=== PATIENT | female | born 1945 | race Caucasian/White ===

== ENCOUNTER 2016-08-08 17:32 | Observation (INO) | payer MEDICARE ==
[~2016-08-08] VITALS: Ht 162.6 cm; Wt 64.5 kg
[~2016-08-08 17:32] MED LIST: [UNRECOGNIZED DRUG - OTHER] PO
[2016-08-08 17:40] VITALS: PULSE 70; RESP 12; O2SAT 99
--- NOTE | 2016-08-08 17:59 | DRSVH ---
PROCEDURE: X-RAY CHEST ONE VIEW, PORTABLE ([id number]) INDICATIONS: CP TECHNIQUE: One view of the chest was acquired. COMPARISON: [facility], CR, XR CHEST 2VW, 02/13/2016, 20:28. FINDINGS: Surgical changes and devices: Left chest wall surgical clips. Lungs and pleura: No pleural effusions or pneumothorax. Lungs are clear. Mediastinum: Mediastinal contours appear normal. Heart size is normal. Bones and chest wall: No suspicious bony lesions. Overlying soft tissues appear unremarkable. IMPRESSION: No acute process. Dictated by: Terrell Parr M.D. on 08/08/2016 at 17:58 Approved by: Terrell Parr M.D. on 08/08/2016 at 17:58
[2016-08-08 18:05] LABS: BASOPHILS % (AUTO) 0.8 % (0-3); EOSINOPHILS % (AUTO) 1.2 % (0-5); MONOCYTES % (AUTO) 9.1 % (4-12); Mean Corpuscular Hemoglobin 33.6 pg (27.0-35.0); Mean Corpuscular Volume 96.3 fL (81-100); NEUTROPHILS % (AUTO) 66.8 % (40-74); Platelet Count 183 bil/L (150-400)
--- NOTE | 2016-08-08 18:17 | ED.REPORT ---
HPI-Chest Pain 40 and Over Date of Service Aug 08, 2016 ED Provider: Dr. Jacob Forbes D.O. A 70 year old female with a medical history including Spigelian hernia, nephrolithiasis, and breast cancer s/p lumpectomy presents to the ED with intermittent left lower chest pain onset several years ago, worsening today around 1100 while walking. The pain is described as "tightness." The patient also reports shortness of breath and exertional dyspnea. She denies vomiting or other symptoms. She has had previous work-ups for similar symptoms in the past, including in the ED on 02/12/17. Nursing Notes Stated Complaint: SHORT OF BREATH, TIGHTNESS IN CHEST Chief Complaint: Chest Pain Nursing Notes Reviewed: Yes Allergies: Coded Allergies: ciprofloxacin HCl (Verified Allergy, Severe, tendons hurting in knees and ankles, 08/08/16) oxycodone (Verified Allergy, Severe, Nausea,Vomiting, 08/08/16) tamsulosin HCl (Verified Allergy, Severe, racing heart, 08/08/16) timolol (Verified Allergy, Severe, Shortness of Breath, 08/08/16) brimonidine (Verified Adverse Reaction, Severe, Shortness of Breath, ) prednisone (Verified Adverse Reaction, Intermediate, Nausea,Vomiting, 02/12) Uncoded Allergies: ORAL NARCOTICS (Allergy, Severe, VOMITING, 06/19/12) Scheduled Cholecalciferol (Vitamin D3) (Vitamin D3) 2,000 Unit Tablet 2,000 UNIT PO DAILY Levothyroxine (Levothyroxine) 25 Mcg Tablet 25 MCG PO QAM Ubidecarenone (Coenzyme Q-10) 200 Mg Capsule 200 MG PO DAILY General Time Seen by MD: 18:17 Chief Complaint Chest pain Hx Obtained From: Patient Arrived By: Walk-in Sudden in Onset?: No Onset Occurred: More than a week ago... (Several years ago, worsening 1100 today) Symptom Duration: Intermittent Location: : Chest left (Lower) Quality: Painful ("Tightness") Severity: Current: Moderate Severity: Maximum: Moderate Associated with: Reports: Shortness of Breath, Denies: Vomiting Pertinent Negative: Relieved by nothing Recent Healthcare: Prior workup Similar Sx Previous: Yes Past Medical History Past Medical History Kidney stones Spigelian hernia Breast cancer Past Surgical History Left eye removed Breast cancer s/p lumpectomy Reports: Appendectomy Smoking History Former Smoker Social History Alcohol Use: Denies alcohol use Drug Use: Denies drug use Other Social History: Good social support, , Local resident Ambulatory Status Independent Review of Systems Constitutional: Denies: Fever Respiratory: Reports: Dyspnea on exertion, Shortness of breath, Denies: Non-productive cough Cardiovascular: Reports: Chest pain (Left lower) GI: Denies: Diarrhea, Vomiting Complete sys rev & neg: except as marked. Physical Exam Initial Vital Signs Vital Signs (First) Date Time Temp Pulse Resp B/P Pulse Ox O2 Delivery O2 Flow Rate FiO2 08/08/16 17:40 36.7 70 12 99 Room Air 08/08/16 18:56 143/63 Initial VS: Reviewed Neck: Supple, Full range of motion Skin: Warm, Dry, No cyanosis Neurologic: Alert, Oriented, Nonfocal Psychiatric: Mood/affect normal, Behavior normal, Normal thought content General/Constitutional: Awake, Alert, No acute distress Respiratory / Chest: Breath sounds NL, Breath sounds = bilat, No respiratory distress Cardiovascular: Heart rate NL, Regular rhythm, Heart sounds NL Abdomen: Soft, Non-tender Head / Eyes: Atraumatic, Normocephalic Prosthetic left eye Interpretation & Diagnostics Lab Results Interpretation Result Diagram: 08/08/16 1750 08/08/16 1750 Test 08/08/16 17:50 White Blood Count 4.9th/mm3 (3.8-10.1) Red Blood Count 4.61mil/mm3 (3.90-5.20) Hemoglobin 15.5g/dL (12.0-15.6) Hematocrit 44.4% (35.0-46.0) Mean Corpuscular Volume 96.3fL (81-100) Mean Corpuscular Hemoglobin 33.6pg (27.0-35.0) Mean Corpuscular Hemoglobin Concent 34.9% (32.0-37.0) Red Cell Distribution Width 11.7% (12.3-15.4) Platelet Count 183bil/L (150-400) Neutrophils (%) (Auto) 66.8% (40-74) Lymphocytes (%) (Auto) 21.7% (14-46) Monocytes (%) (Auto) 9.1% (4-12) Eosinophils (%) (Auto) 1.2% (0-5) Basophils (%) (Auto) 0.8% (0-3) D-Dimer < 0.5mg/L (<0.50) Sodium Level 138mEq/L (134-144) Potassium Level 3.7mEq/L (3.5-5.2) Chloride Level 99mEq/L (97-108) Carbon Dioxide Level 24mmol/L (18-29) Blood Urea Nitrogen 11mg/dL (8-27) Creatinine 0.56mg/dL (0.57-1.00) Estimat Glomerular Filtration Rate 152mL/min (>59) Glucose Level 99mg/dL (60-99) Calcium Level 9.2mg/dL (8.5-10.1) Magnesium Level 2.3mg/dL (1.6-2.6) Total Bilirubin 0.6mg/dL (0.0-1.2) Aspartate Amino Transf (AST/SGOT) 23U/L (0-50) Alanine Aminotransferase (ALT/SGPT) 17U/L (0-32) Alkaline Phosphatase 103U/L (25-165) Total Creatine Kinase 92U/L (21-215) Creatine Kinase MB 3.6ng/mL (0.0-5.3) Creatine Kinase MB % % (0.0-5.0) Troponin T < 0.010ug/L (0.0-0.011) Total Protein 7.0g/dL (6.4-8.4) Albumin 4.4g/dL (3.4-5.0) ECG Interpretation ECG Interpretation: Sinus rhythm rate 64 Left axis deviation Time: 18:00 Interpreted by: ED physician X-Ray Chest Interpretation Chest Xray Interpretation: IMPRESSION: No acute process. Dictated by: Terrell Parr M.D. on 08/08/2016 at 17:58 View: Portable, 1 view Interpretation / Wet Read by: Interpret - Radiologist CT Chest Interpretation IMPRESSION: 1. No acute process. No pulmonary embolus. 2. No change in right thyroid mass, which could be further assessed with ultrasound, if clinically indicated. Dictated by: Terrell Parr M.D. on 08/08/2016 at 20:06 Study type: CT pulm angiogram Interpretation / Wet Read by: Interpret - Radiologist Re-Eval/Medical Decision Source of Hx: Old records Time of Eval: 21:30 Patient Status: Condition improved Re-Evaluation/Progress Note: Discussed with patient x-ray, CT, and lab results, diagnosis, and plan for admit. Patient agrees with plan for care and all questions were addressed. Consultation : Referral / Consult Name: Dillan Guzman MD Consulted With: Hospitalist Call Returned at: 21:57 Adjutant General: Agrees with eval, Agrees with plan, Accepts admit Counseled Regarding: Diagnosis, Lab results, Need for admission Discharge & Departure Primary Impression: Chest pain Chest pain type: precordial chest pain Qualified Code: R07.2 - Precordial pain Disposition: ADMITTED TO HOSPITAL Discharge Condition All VS Reviewed: Yes Condition: Improved Referrals: Hunter Togn DO (PCP) Alycia Attestation Portions of this note were transcribed by Deidre Seals. I, Dr. Forbes, personally performed the history, physical exam, and medical decision-making; I reviewed and confirmed the accuracy of the information in the transcribed note. Signed by: Alycia Welsh, 08/08/2016, 22:55 copies to: Hunter Tong Todd P DO Aug 08, 2016 18:17 DEIDRE SEALS Aug 08, 2016 18:32
[2016-08-08] MEDS ORDERED: LEVO25TA5 PO (18:20)
[2016-08-08 18:37] LABS: Magnesium 2.3 mg/dL (1.6-2.6)
[2016-08-08 18:42] LABS: TROPONIN T < 0.010 ug/L (0.0-0.011)
[2016-08-08 18:56] VITALS: BP 143/63; PULSE 68; RESP 18; O2SAT 99
[2016-08-08 20:00] VITALS: BP 152/50; PULSE 72; RESP 18; O2SAT 97
--- NOTE | 2016-08-08 20:09 | DRSVH ---
PROCEDURE: CT ANGIO CHEST PULMONARY EMBOLISM ([id number]) INDICATIONS: dyspnea, chest pain, sharp pain TECHNIQUE: After the administration of intravenous contrast, 2 mm thick sections acquired from the pulmonary api asael to the posterior costophrenic angles. 3-dimensional maximum intensity projection (MIP) coronal a nd sagittal reformats were then acquired through the thorax. For radiation dose reduction, the follo wing was used: automated exposure control, adjustment of mA and/or kV according to patient size. COMPARISON: [facility] , CT, CHEST/ABD W/CON (PNL), 10/19/2005, 18:24. [facility], CT, CHEST ANGIO-PE, 10/04/2013, 21:19. FINDINGS: Image quality: Excellent. Pulmonary arteries: Pulmonary arteries are normal in size, and demonstrate no intraluminal filling d efects to suggest central pulmonary embolism. Lungs and pleura: Lungs are clear. No pleural effusions or pneumothorax. Central and peripheral ai rways are patent. Mediastinum: Heart size is normal, without pericardial effusion. No mediastinal or hilar adenopathy . Thoracic aorta is normal in caliber and enhancement. Esophagus is normal in caliber, without hiat al hernia. Bones and chest wall: No suspicious bony lesions. Ribs and thoracic spine appear intact throughout. Thyroid gland demonstrates a 20 mm diameter low-density focus within the right lobe, as before. No axillary or supraclavicular adenopathy. Abdomen: Visualized upper abdominal solid organs appear normal in the early arterial phase of enhanc ement. IMPRESSION: 1. No acute process. No pulmonary embolus. 2. No change in right thyroid mass, which could be further assessed with ultrasound, if clinically in dicated. Dictated by: Terrell Parr M.D. on 08/08/2016 at 20:06 Approved by: Terrell Parr M.D. on 08/08/2016 at 20:08
[2016-08-08 21:00] VITALS: BP 135/60; PULSE 68; RESP 18; O2SAT 95
[2016-08-08] MEDS ORDERED: Nitroglycerin 2% 1 Gm Ointment TOPICAL ONE (21:10)
[2016-08-08 22:00] VITALS: BP 151/72; PULSE 69; RESP 18; O2SAT 97
[2016-08-08] MEDS ORDERED: Senna-Docusate 8.6-50 mg Tablet PO PRN (22:00)
[2016-08-08] MEDS ORDERED: Ondansetron 2 mg/mL 2 mL Inj IVPUSH PRN (22:00)
[2016-08-08] MEDS ORDERED: Alum-Mag Hydrox-Simeth 30 mL Suspension PO PRN (22:00)
[2016-08-08] MEDS ORDERED: Polyethylene Glycol (PEG) 17 Gm Powder PO PRN (22:00)
[2016-08-08] MEDS ORDERED: Atropine 1 mg/10 mL (Code) Syringe IVPUSH PRN (22:00)
[2016-08-08] MEDS ORDERED: CHOL200025 PO (22:23)
[2016-08-08] MEDS ORDERED: UBID200C31 PO (22:23)
[2016-08-08 22:37] LABS: Creatine Kinase 92 U/L (21-215)
[2016-08-08 22:53] VITALS: BP 162/80; PULSE 73; RESP 20; O2SAT 98
--- NOTE | 2016-08-08 23:23 | PCM.HPMED ---
Subjective Date of Service Aug 08, 2016 Primary Provider: Admitting Physician: Dillan Guzman MD Primary Care Physician: Hunter Tong DO Attending Physician: Dillan Guzman MD Admit Status: From the Emergency Department, 23-Hour Observation, Remote Telemetry Chief Complaint: Chest pain History of Present Illness: Soraya Nava is a 70 year old female with Spigelian hernia, nephrolithiasis, and breast cancer s/p lumpectomy presents to [facility] emergency department with intermittent left lower chest pain. Patient reported onset several years ago, worsening today around 1100 while walking with her . The pain is described as "tightness." that seems to radiate to the left lower chest area. Associated with some shortness of breath and exertional dyspnea. She denies vomiting, diaphoresis, or vomiting. She has had previous work-ups for similar symptoms in the past, including in the ED on 02/12/17. She had a negative stress test about 3 years ago. Her has extensive heart disease and had a negative stress test but he was later found to have a massive DC, family and patient are skeptical about stress test. She denies any stress recently but had Anxiety problems around June. She is compliant with medication and only takes thyroid medications. Case discussed with Dr Forbes, Aspirin and Nitro given with resolution of pain. Troponin negative. Review of Systems: Pertinent positives as noted in HPI. All other systems were reviewed and are negative Allergies Coded Allergies: ciprofloxacin HCl (Verified Allergy, Severe, tendons hurting in knees and ankles, 08/08/16) oxycodone (Verified Allergy, Severe, Nausea,Vomiting, 08/08/16) tamsulosin HCl (Verified Allergy, Severe, racing heart, 08/08/16) timolol (Verified Allergy, Severe, Shortness of Breath, 08/08/16) brimonidine (Verified Adverse Reaction, Severe, Shortness of Breath, ) prednisone (Verified Adverse Reaction, Intermediate, Nausea,Vomiting, 02/12) Uncoded Allergies: ORAL NARCOTICS (Allergy, Severe, VOMITING, 06/19/12) Home Medications From Soraya Esparza. [id number] 1945 08/07/2016 09:40 AM 06/11 CoQ-10 100 mg capsule take 1 capsule every day Tirosint 25 mcg capsule take 1 capsule by oral route every day PMH Tricuspid regurgitation Osteopenia Osteoarthritis, knee Hypothyroidism Breast cancer s/p lumpectomy and radiation COPD (chronic obstructive pulmonary disease) Hyperlipidemia Nephrolithiasis Anxiety . Surgical History Spigelian hernia repair Cornea transplant Chelation to remove calcium deposits left cornea Lumpectomy and radiation for Breast cancer Multiple lithotripsy procedure to remove kidney stones Family History Father had colon cancer, Stroke Brother had Lung cancer and melanoma Brother had Factor V Leiden Social History Hx Alcohol Use: No Hx Substance Use: No Hx Tobacco Use: Yes Smoking Status: Former Smoker Living Arrangement: with Family Exam Vital Signs Vital Sign - Last Date Time Temp Pulse Resp B/P Pulse Ox O2 Delivery O2 Flow Rate FiO2 08/08/16 18:56 68 18 143/63 99 Room Air 08/08/16 17:40 36.7 Exam General: Alert, Oriented X3, Cooperative, No acute Distress Eyes: PERRLA, Scleral Anicteric Mouth: Mouth Normal, Mucous Membranes Moist/[place] Neck: Supple, no Thyromegaly, trachea central. Chest & Lungs: Clear to auscultation & percussion, No adventitious breath sounds, no crackles, no wheeze Cardiovascular: Normal S1, Normal S2, No Murmurs/Rubs/Gallops, Regular Rate/ Rhythm, (No JVD, no peripheral edema) Pulses: Radial (present and equal), Dorsalis Pedi (present and equal) Abdomen: Soft, Non-tender, Non-distended, Normoactive bowel tones. Musculoskeletal: Unremarkable. Normal range of motion, no swollen or erythematous joints Extremities: No edema, no cyanosis, no clubbing. Skin: No rashes. Warm and dry, no erythematous areas Neurological: Grossly neurologically intact, Normal Speech, Sensation Intact Lymphatic: Lymph nodes Cervical and Axillary not palpable. Lab and Diagnostics Labs Laboratory Tests Test 08/08/16 17:50 White Blood Count 4.9th/mm3 (3.8-10.1) Red Blood Count 4.61mil/mm3 (3.90-5.20) Hemoglobin 15.5g/dL (12.0-15.6) Hematocrit 44.4% (35.0-46.0) Mean Corpuscular Volume 96.3fL (81-100) Mean Corpuscular Hemoglobin 33.6pg (27.0-35.0) Mean Corpuscular Hemoglobin Concent 34.9% (32.0-37.0) Red Cell Distribution Width 11.7% (12.3-15.4) Platelet Count 183bil/L (150-400) Neutrophils (%) (Auto) 66.8% (40-74) Lymphocytes (%) (Auto) 21.7% (14-46) Monocytes (%) (Auto) 9.1% (4-12) Eosinophils (%) (Auto) 1.2% (0-5) Basophils (%) (Auto) 0.8% (0-3) D-Dimer < 0.5mg/L (<0.50) Sodium Level 138mEq/L (134-144) Potassium Level 3.7mEq/L (3.5-5.2) Chloride Level 99mEq/L (97-108) Carbon Dioxide Level 24mmol/L (18-29) Blood Urea Nitrogen 11mg/dL (8-27) Creatinine 0.56mg/dL (0.57-1.00) Estimat Glomerular Filtration Rate 152mL/min (>59) Glucose Level 99mg/dL (60-99) Calcium Level 9.2mg/dL (8.5-10.1) Magnesium Level 2.3mg/dL (1.6-2.6) Total Bilirubin 0.6mg/dL (0.0-1.2) Aspartate Amino Transf (AST/SGOT) 23U/L (0-50) Alanine Aminotransferase (ALT/SGPT) 17U/L (0-32) Alkaline Phosphatase 103U/L (25-165) Troponin T < 0.010ug/L (0.0-0.011) Total Protein 7.0g/dL (6.4-8.4) Albumin 4.4g/dL (3.4-5.0) Result Diagram: 08/08/16 1750 08/08/16 1750 X-Rays, CTs and MRIs X-RAY CHEST ONE VIEW, PORTABLE 08/08/16 IMPRESSION: No acute process. Dictated by: Terrell Parr M.D. on 08/08/2016 at 17:58 Approved by: Terrell Parr M.D. on 08/08/2016 at 17:58 CT ANGIO CHEST PULMONARY EMBOLISM 08/08/16 IMPRESSION: 1. No acute process. No pulmonary embolus. 2. No change in right thyroid mass, which could be further assessed with ultrasound, if clinically indicated. Dictated by: Terrell Parr M.D. on 08/08/2016 at 20:06 Approved by: Terrell Parr M.D. on 08/08/2016 at 20:08 Assessment & Plan Soraya Nava is a 70 year old female with Spigelian hernia, nephrolithiasis, and breast cancer s/p lumpectomy presents to [facility] emergency department with intermittent left lower chest pain 1. Acute Chest pain. Present on admission Pulmonary embolism ruled out and no aortic dissection on CT scan. Patient had radiation from her breast cancer and could be a contributing factor. Mention of patient having hiatal hernia from review of clinic notes, consider GI causes such as reflux. - monitor on telemetry - trending cardiac biomarkers - complete echo - patient and family refused stress test and wants to discuss a cardiac cath with Cardiology tomorrow - Cardiology will be consulted to discuss options with family 2. Hypothyroidism Recent TSH 1.36 (06/11/16). thyroid mass seen on CT scan - continue Synthroid 25 mcg daily - follow up with Endocrinology as outpatient 3. Breast cancer. in remission - routine surveillance as outpatient - Acetaminophen as needed for mild pain/fever/headache - Bowel regimen as needed - Antiemetic as needed Patient is admitted under observation status with expected length of stay less than 2 midnights due to severity of presenting symptoms, risk of adverse event, and complexity of treatment plan. . Resuscitation Status: CPR: Attempt Resuscitation Dillan Guzman MD Aug 08, 2016 22:06
[2016-08-08] MEDS: 0.9% Sodium Chloride 1,000 ML IV SCH (23:27)
[2016-08-08] MEDS: Sodium Chloride LOK Flush 10 mL Syringe IVFLUSH SCH (23:27)
[2016-08-08] MEDS: Heparin 5,000 Unit/mL Inj SUBQ SCH (23:42)
[2016-08-09 02:54] LABS: Creatine Kinase 62 U/L (21-215)
[2016-08-09 04:49] VITALS: BP 153/74; PULSE 60; RESP 20; O2SAT 96
[2016-08-09 04:53] LABS: COLOR,URINE STRAW (YELLOW)
[2016-08-09 04:54] LABS: APPEARANCE,URINE CLEAR (CLEAR,HAZY); OCCULT BLOOD,URINE NEGATIVE (NEGATIVE); PH,URINE 6.5 (5.0-8.0); UROBILINOGEN,URINE NORMAL (NORMAL)
--- NOTE | 2016-08-09 05:26 | NUR ---
Admit note Pt arrive to [facility] at 2245. Pt is alert and oriented X3, up ind in room, steady gait observed. Placed pt on tele, IV fluids infusing. SCDs in place. Pt to be NPO after midnight per MD orders. Call light within reach, frequent rounding, allergy sticker to arm band.
[2016-08-09 06:39] LABS: BASOPHILS % (AUTO) 1.1 % (0-3); EOSINOPHILS % (AUTO) 2.5 % (0-5); MONOCYTES % (AUTO) 12.9 % (4-12); Mean Corpuscular Hemoglobin 33.1 pg (27.0-35.0); NEUTROPHILS % (AUTO) 45.1 % (40-74); Platelet Count 150 bil/L (150-400)
[2016-08-09 06:57] VITALS: PULSE 66
[2016-08-09 08:00] VITALS: PULSE 66
[2016-08-09] MEDS: Sodium Chloride LOK Flush 10 mL Syringe IVFLUSH SCH ×2 (08:30→16:30)
[2016-08-09 08:49] VITALS: BP 136/78; PULSE 59; RESP 21; O2SAT 95
[2016-08-09] MEDS: Heparin 5,000 Unit/mL Inj SUBQ SCH ×2 (09:14→16:30)
[2016-08-09] MEDS: 0.9% Sodium Chloride 1,000 ML IV SCH (10:37)
[2016-08-09 10:59] LABS: Creatine Kinase 61 U/L (21-215)
--- NOTE | 2016-08-09 13:08 | NUR ---
Off Unit: Patient transported to [facility] @ approx 1310 via wheelchair accompanied by transporter. automatic equipment technician notified. Denies chest pain at time of transport.
[2016-08-09 13:18] VITALS: BP 145/66; PULSE 65; RESP 20; O2SAT 94
--- NOTE | 2016-08-09 14:09 | PCM.PNMED ---
Subjective Date of Service Aug 09, 2016 Subjective HPI as per admitting physician: Soraya Nava is a 70 year old female with Spigelian hernia, nephrolithiasis, and breast cancer s/p lumpectomy presents to [facility] emergency department with intermittent left lower chest pain. Patient reported onset several years ago, worsening today around 1100 while walking with her . The pain is described as "tightness." that seems to radiate to the left lower chest area. Associated with some shortness of breath and exertional dyspnea. She denies vomiting, diaphoresis, or vomiting. She has had previous work-ups for similar symptoms in the past, including in the ED on 02/12/17. She had a negative stress test about 3 years ago. Her has extensive heart disease and had a negative stress test but he was later found to have a massive CA, family and patient are skeptical about stress test. She denies any stress recently but had Anxiety problems around June. She is compliant with medication and only takes thyroid medications. Case discussed with Dr Forbes, Aspirin and Nitro given with resolution of pain. Troponin negative. S: Pt denies present cp/f//sob - discussed with pt RF related to cardiac dz which in her case include tob hx (remote) and age. While I mentioned a cath would likely nto take place without discussion/recommendation by cardiology - I offerred her the option to pursue the recommended route of nucl stress test. pt states she can walk >2miles at baseline, doest do much stairs but denies cp that resolves with rest - a persistent sob has occurred though which she has repeatedly had nl stress tests. pt reported having a nl strss approx 2yrs ago. pts at bedside restating that his CAD hx came with nl stress tests so he is worried about the etiology of persistent sob. pt does have a hx of COPD Exam Vital Signs Vital Sign - Last Date Time Temp Pulse Resp B/P Pulse Ox O2 Delivery O2 Flow Rate FiO2 08/09/16 13:18 36.5 65 20 145/66 94 Room Air Intake and Output 08/08/16 08/08/16 08/09/16 Cumulative From/Thru 15:00 23:00 07:00 08/08/16 17:40 - 08/09/16 04:49 Intake Total 100 ml 407 ml 507 ml Balance 100 ml 407 ml 507 ml Intake Oral 100 ml 100 ml IV Total 407 ml 407 ml Exam General: Alert, Oriented X3, Cooperative, No acute Distress Eyes: PERRLA, Scleral Anicteric Mouth: Mouth Normal, Mucous Membranes Moist/[place] Neck: Supple, no Thyromegaly, trachea central. no JVD Chest & Lungs: Clear to auscultation & percussion, No adventitious breath sounds, no crackles, no wheeze Cardiovascular: Normal S1, Normal S2, No Murmurs/Rubs/Gallops, Regular Rate/ Rhythm Pulses: Radial (present and equal), Dorsalis Pedi (present and equal) Abdomen: Soft, Non-tender, Non-distended, Normoactive bowel tones. Musculoskeletal: Unremarkable. Normal range of motion, no swollen or erythematous joints Extremities: No edema, no cyanosis, no clubbing. Skin: No rashes. Warm and dry, no erythematous areas Neurological: Grossly neurologically intact, Normal Speech, Sensation Intact Lymphatic: Lymph nodes Cervical and Axillary not palpable. IVs and Medications Medications Reviewed: Medications were reviewed in detail Lab and Diagnostics Result Diagram: 08/09/16 0557 08/09/16 0557 X-Rays, CTs and MRIs X-RAY CHEST ONE VIEW, PORTABLE 08/08/16 IMPRESSION: No acute process. Dictated by: Terrell Parr M.D. on 08/08/2016 at 17:58 Approved by: Terrell Parr M.D. on 08/08/2016 at 17:58 CT ANGIO CHEST PULMONARY EMBOLISM 08/08/16 IMPRESSION: 1. No acute process. No pulmonary embolus. 2. No change in right thyroid mass, which could be further assessed with ultrasound, if clinically indicated. Dictated by: Terrell Parr M.D. on 08/08/2016 at 20:06 Approved by: Terrell Parr M.D. on 08/08/2016 at 20:08 Assessment & Plan Soraya Nava is a 70 year old female with Spigelian hernia, nephrolithiasis, and breast cancer s/p lumpectomy presents to [facility] emergency department with intermittent left lower chest pain 1. Acute Chest pain. Present on admission Pulmonary embolism ruled out and no aortic dissection on CT scan. Patient had radiation from her breast cancer and could be a contributing factor. Mention of patient having hiatal hernia from review of clinic notes, consider GI causes such as reflux. - monitor on telemetry - trending cardiac biomarkers - neg - Chol unremarkable - complete echo - patient and family initially refused sterss - now will hav done today after discussion - Cardiology was contacted today regarding pt 2. Hypothyroidism Recent TSH 1.36 (06/11/16). thyroid mass seen on CT scan - continue Synthroid 25 mcg daily - follow up with Endocrinology as outpatient 3. Breast cancer. in remission - routine surveillance as outpatient - Acetaminophen as needed for mild pain/fever/headache - Bowel regimen as needed - Antiemetic as needed Patient is admitted under observation status with expected length of stay less than 2 midnights due to severity of presenting symptoms, risk of adverse event, and complexity of treatment plan. . Pain Evaluation: Adequate Pain Control GI Prophylaxis: H2 ramona VTE Prophylaxis: Sub-Q Heparin (Unfractionated) VTE Mechanical Devices: Intermittant Pneumatic CD Resuscitation Status: CPR: Attempt Resuscitation Time spent 40 minutes spent wtih eval and mgmt Attending Statement likely dc tomorrow if neg stress and discussion with cardiology Jigar Bryant DO Aug 09, 2016 14:09
[2016-08-09 16:37] VITALS: BP 134/73; PULSE 71; RESP 21; O2SAT 97
[2016-08-09] MEDS ORDERED: ASPI81TA3 PO (17:35)
--- NOTE | 2016-08-09 17:41 | PCM.DIMED ---
Discharge Instructions Date of Service Aug 09, 2016 Dates of Hospitalization Aug 08, 2016 at 21:52 Discharge Diagnosis Discharge Diagnosis noncardiac chest pain - neg stress - r/o sx COPD Tricuspid regurgitation Osteopenia Osteoarthritis, knee Hypothyroidism Breast cancer s/p lumpectomy and radiation COPD (chronic obstructive pulmonary disease) Hyperlipidemia Nephrolithiasis Anxiety Medication Instructions I have started primary prevention tx with aspirin 81mg given HLP, age, and cva fam hx Diet Heart Healthy Activity No restrictions Patient Instructions please take 1 aspirin 81mg daily for cardiac protection Follow-up plan f/u with DR Martel of Cardiology by calling for an appointment - I have sent a referral, please contact his office to ensure you have an established appointment Please also f/u with your PCP to review your PFTs (pulmonary function test) - since you mentioned these had been completed and were normal Please f/u with your other battery charger at the end of August - Dr. Camacho? I believe Follow-up with PCP in: 1 week Provider: Pavel Martel MD Follow-up in: 2 weeks Jigar Bryant DO Aug 09, 2016 17:41
--- NOTE | 2016-08-09 17:46 | PCM.DC.MED ---
Discharge Summary Date of Service Aug 09, 2016 Dates of Hospitalization Date of Hospital Admission Aug 08, 2016 at 21:52 Date of Discharge: Aug 09, 2016 Providers: Admitting Physician: Dillan Guzman MD Primary Care Physician: Hunter Tong DO Attending Physician: Dillan Guzman MD Diagnosis at Time of Discharge Diagnosis at Time of Discharge noncardiac chest pain - neg stress - r/o sx COPD Tricuspid regurgitation Osteopenia Osteoarthritis, knee Hypothyroidism Breast cancer s/p lumpectomy and radiation COPD (chronic obstructive pulmonary disease) Hyperlipidemia Nephrolithiasis Anxiety Consultations stress test with Dr. Martel of [facility] Procedures XRay, CTs & MRIs X-RAY CHEST ONE VIEW, PORTABLE 08/08/16 IMPRESSION: No acute process. Dictated by: Terrell Parr M.D. on 08/08/2016 at 17:58 Approved by: Terrell Parr M.D. on 08/08/2016 at 17:58 CT ANGIO CHEST PULMONARY EMBOLISM 08/08/16 IMPRESSION: 1. No acute process. No pulmonary embolus. 2. No change in right thyroid mass, which could be further assessed with ultrasound, if clinically indicated. Dictated by: Terrell Parr M.D. on 08/08/2016 at 20:06 Approved by: Terrell Parr M.D. on 08/08/2016 at 20:08 Other Diagnostics nuclear stress - OFFICIAL REPORT PENDING - but d/w Dr Meléndez and deemed neg prior to discharge Brief History Soraya Nava is a 70 year old female with Spigelian hernia, nephrolithiasis, and breast cancer s/p lumpectomy presents to [facility] emergency department with intermittent left lower chest pain. Patient reported onset several years ago, worsening today around 1100 while walking with her . The pain is described as "tightness." that seems to radiate to the left lower chest area. Associated with some shortness of breath and exertional dyspnea. She denies vomiting, diaphoresis, or vomiting. She has had previous work-ups for similar symptoms in the past, including in the ED on 02/12/17. She had a negative stress test about 3 years ago. Her has extensive heart disease and had a negative stress test but he was later found to have a massive WA, family and patient are skeptical about stress test. She denies any stress recently but had Anxiety problems around June. She is compliant with medication and only takes thyroid medications. Case discussed with Dr Forbes, Aspirin and Nitro given with resolution of pain. Troponin negative. Hospital Course Soraya Nava is a 70 year old female with Spigelian hernia, nephrolithiasis, and breast cancer s/p lumpectomy presents to [facility] emergency department with intermittent left lower chest pain 1. Acute Chest pain. Present on admission Pulmonary embolism ruled out and no aortic dissection on CT scan. Patient had radiation from her breast cancer and could be a contributing factor. Mention of patient having hiatal hernia from review of clinic notes, consider GI causes such as reflux. - monitor on telemetry - no events - trending cardiac biomarkers - neg - Chol unremarkable - patient and family initially refused sterss and wanted Cath - but educated and agreed to stress test which was neg - Cardiology was contacted today regarding pt - and Dr. Martel will see pt in his office to consider cath after outpatient discussion with pt - start asa 81mg upon dc today for primary prevention - chol reviewed and at goal 2. Hypothyroidism Recent TSH 1.36 (06/11/16). thyroid mass seen on CT scan - continue Synthroid 25 mcg daily 3. Breast cancer. in remission - routine surveillance as outpatient - Acetaminophen as needed for mild pain/fever/headache - Bowel regimen as needed - Antiemetic as needed pt to be discharged Exam Vital Signs (Last) Date Time Temp Pulse Resp B/P Pulse Ox O2 Delivery O2 Flow Rate FiO2 08/09/16 16:37 36.4 71 21 134/73 97 Room Air Exam General: Alert, Oriented X3, Cooperative, No acute Distress Eyes: PERRLA, Scleral Anicteric Mouth: Mouth Normal, Mucous Membranes Moist/[employer] Neck: Supple, no Thyromegaly, trachea central. no JVD Chest & Lungs: Clear to auscultation & percussion, No adventitious breath sounds, no crackles, no wheeze Cardiovascular: Normal S1, Normal S2, No Murmurs/Rubs/Gallops, Regular Rate/ Rhythm Pulses: Radial (present and equal), Dorsalis Pedi (present and equal) Abdomen: Soft, Non-tender, Non-distended, Normoactive bowel tones. Musculoskeletal: Unremarkable. Normal range of motion, no swollen or erythematous joints Extremities: No edema, no cyanosis, no clubbing. Skin: No rashes. Warm and dry, no erythematous areas Neurological: Grossly neurologically intact, Normal Speech, Sensation Intact Lymphatic: Lymph nodes Cervical and Axillary not palpable. Test 08/08/16 17:50 08/09/16 04:44 08/09/16 05:57 08/09/16 10:05 D-Dimer < 0.5mg/L (<0.50) Hemoglobin A1c 5.4% (4.8-5.6) Magnesium Level 2.3mg/dL (1.6-2.6) Total Bilirubin 0.6mg/dL (0.0-1.2) Aspartate Amino Transf (AST/SGOT) 23U/L (0-50) Alanine Aminotransferase (ALT/SGPT) 17U/L (0-32) Alkaline Phosphatase 103U/L (25-165) Total Protein 7.0g/dL (6.4-8.4) Albumin 4.4g/dL (3.4-5.0) Urine Color Straw (YELLOW) Urine Appearance Clear (CLEAR,HAZY) Urine pH 6.5 (5.0-8.0) Urine Specific [place] <1.005 (1.003-1.035) Urine Protein Negativemg/dL (NEG,TRACE) Urine Glucose (UA) Negativemg/dL (NEGATIVE) Urine Ketones Negativemg/dL (NEGATIVE) Urine Occult Blood Negative (NEGATIVE) Urine Nitrite Negative (NEGATIVE) Urine Bilirubin Negative (NEGATIVE) Urine Urobilinogen Normalmg/dL (NORMAL) Urine Leukocyte Esterase Negative (NEGATIVE) Urine RBC 0-2/hpf (0-2) Urine WBC 0-5/hpf (0-5) Urine Epithelial Cells None/hpf (NONE-MOD) Urine Crystals Oxalic acid crystals (NONE Urine Bacteria None/hpf (NONE-FEW) Urine Hyaline Casts None/lpf (NONE) Urine Granular Casts None seen (NONE SEEN) Urine Waxy Casts None seen (NONE SEEN) Urine Red Blood Cell Casts None seen (NONE SEEN) Urine White Blood Cell Casts None seen (NONE SEEN) Urine Mucus None seen (None Seen) Urine Trichomonas None seen (NONE SEEN) Urine Yeast None (NONE SEEN) Urinalysis Comment None Urine Culture Reflexed Not indicated White Blood Count 3.6th/mm3 (3.8-10.1) Red Blood Count 4.08mil/mm3 (3.90-5.20) Hemoglobin 13.5g/dL (12.0-15.6) Hematocrit 40.4% (35.0-46.0) Mean Corpuscular Volume 99.0fL (81-100) Mean Corpuscular Hemoglobin 33.1pg (27.0-35.0) Mean Corpuscular Hemoglobin Concent 33.4% (32.0-37.0) Red Cell Distribution Width 11.8% (12.3-15.4) Platelet Count 150bil/L (150-400) Neutrophils (%) (Auto) 45.1% (40-74) Lymphocytes (%) (Auto) 38.1% (14-46) Monocytes (%) (Auto) 12.9% (4-12) Eosinophils (%) (Auto) 2.5% (0-5) Basophils (%) (Auto) 1.1% (0-3) Sodium Level 143mEq/L (134-144) Potassium Level 3.9mEq/L (3.5-5.2) Chloride Level 107mEq/L (97-108) Carbon Dioxide Level 25mmol/L (18-29) Blood Urea Nitrogen 10mg/dL (8-27) Creatinine 0.52mg/dL (0.57-1.00) Estimat Glomerular Filtration Rate 166mL/min (>59) Glucose Level 93mg/dL (60-99) Calcium Level 8.4mg/dL (8.5-10.1) Triglycerides Level 85mg/dL (0-149) Cholesterol Level 153mg/dL (100-199) LDL Cholesterol, Calculated 91.000mg/dL (0-99) VLDL Cholesterol 17.000mg/dL HDL Cholesterol 45mg/dL (>39) Cholesterol/HDL Ratio 3.40 (0.0-4.4) Total Creatine Kinase 61U/L (21-215) Creatine Kinase MB 2.4ng/mL (0.0-5.3) Creatine Kinase MB % % (0.0-5.0) Troponin T 0.010ug/L (0.0-0.011) Discharge Medications Discharge Medications Aspirin Chew (Aspirin Chew) 81 Mg Chew 81 MG PO DAILY Prescribed by: BREANNE LANGE DO Cholecalciferol (Vitamin D3) (Vitamin D3) 2,000 Unit Tablet 2,000 UNIT PO DAILY (Reported) Levothyroxine (Levothyroxine) 25 Mcg Tablet 25 MCG PO QAM (Reported) Ubidecarenone (Coenzyme Q-10) 200 Mg Capsule 200 MG PO DAILY (Reported) Additional med instructions I have started primary prevention tx with aspirin 81mg given HLP, age, and cva fam hx Followup Plan Disposition: home c Follow-up plan f/u with DR Martel of Cardiology by calling for an appointment - I have sent a referral, please contact his office to ensure you have an established appointment Please also f/u with your PCP to review your PFTs (pulmonary function test) - since you mentioned these had been completed and were normal Please f/u with your other rn ortho at the end of August - Dr. Camacho? I believe Discharge Diet: Heart Healthy Discharge Activity: No restrictions Patient Instructions please take 1 aspirin 81mg daily for cardiac protection Follow-up with PCP in: 1 week Provider: Pavel Martel MD Follow-up in: 2 weeks Time spent 40 minutes jailene del toro and mgmt including discharge and education - >50% spent face to face copies to: Hunter Tong DO; Pavel Martel MD, David DO Aug 09, 2016 17:46
--- NOTE | 2016-08-09 19:12 | NUR ---
Case Management: ANAND explained to patient and her spouse at 1745, all questions answered. Signed original in chart, copy given to patient. Marisol Bynum RN
--- NOTE | 2016-08-09 20:00 | DRSVH ---
PROCEDURE: ONE DAY PHARMACOLOGICAL STRESS TEST. Rest and pharmacological stress myocardial perfusio n SPECT with gated imaging and ejection fraction RADIOPHARMACEUTICAL: 9.1 mCi Tc-99m tetrofosmin IV at rest and 26.8 mCi Tc-99m tetrofosmin IV at pea k effect of pharmacological stress. A [id number] was performed. INDICATIONS: Chest pain. TECHNIQUE: Radiopharmaceutical was injected at peak stress test, and also at rest. SPECT images wer e obtained. SPECT myocardial perfusion images were displayed in short axis, horizontal long axis, an d vertical long axis views. Gated images were reviewed using [employer] software. COMPARISON: None. CARDIAC STRESS: A pharmacologic stress test was performed under the supervision of attending staff, using an infusion of . Hemodynamic Data: There is normal blood pressure and heart rate response to pharmacologic stress. Symptoms: The patient denied anginal chest pain. Aminophylline: Not given. EKG: No diagnostic changes of ischemia; no ectopy. FINDINGS: Raw Data: There is good myocardial uptake of radiotracer. No significant motion artifact. Left Ventricular Function: Gated images demonstrate normal left ventricular wall thickening. No seg mental wall motion abnormalities. No transient ischemic dilation. Left ventricle resting end diasto lic volume is 44 mL. Left ventricle stress ejection fraction is greater than 90%; normal range is ab ove 45%. Myocardial Perfusion: There is normal distribution of activity in the right and left ventricular ron cardium. No fixed or reversible perfusion defects. FINAL IMPRESSION: 1. No diagnostic ST-T changes with Lexiscan. 2. No significant arrhythmia. 3. No ischemia. 4. Normal ejection fraction. Dictated by: Pavel Martel M.D. on 08/09/2016 at 17:17 Transcribed by: LORIN on 08/09/2016 at 23:00 Blank in Cardiac Stress section, dictation cuts out, thanks! Approved by: Pavel Martel M.D. on 08/18/2016 at 14:43
[2016-08-09] MEDS ORDERED: Famotidine Inj 20 MG in IV Premix 1 EACH IV SCH (20:30)
== END 2016-08-09 19:15 | disposition home or self-care (01) ==
LOC: SED 17:32 → MPC 21:52
PROVIDERS: ADMIT Hospitalist; ATTEND Hospitalist
DX: R07.89 Other chest pain (principal); I07.1 Rheumatic tricuspid insufficiency; M85.80 Other specified disorders of bone density and structure, unspecified site; M19.90 Unspecified osteoarthritis, unspecified site; E03.9 Hypothyroidism, unspecified; J44.9 Chronic obstructive pulmonary disease, unspecified; E78.5 Hyperlipidemia, unspecified; F41.9 Anxiety disorder, unspecified; R06.02 Shortness of breath; K43.9 Ventral hernia without obstruction or gangrene; Z88.8 Allergy status to other drugs, medicaments and biological substances; Z87.442 Personal history of urinary calculi; Z85.3 Personal history of malignant neoplasm of breast; Z87.891 Personal history of nicotine dependence
CPT/HCPCS: 36415; 71010; 71275; 78452; 80048; 80053; 80061; 81000; 82550; 82553; 82948; 83036; 83735; 84484; 85025; 85379; 93005; 93017; 99285; A9502; G0378; J0280; J1644; J2785; J7030; Q9967

== ENCOUNTER 2016-12-13 12:06 | Emergency (ER) | payer MEDICARE ==
[~2016-12-13] VITALS: Ht 160 cm; Wt 64.5 kg
[~2016-12-13 12:06] MED LIST changes: +ASPI81TA3 PO; +CHOL200025 PO; +LEVO25TA5 PO; +UBID200C31 PO; -[UNRECOGNIZED DRUG - OTHER] PO
[2016-12-13 12:14] VITALS: BP 134/84; PULSE 65; RESP 16; O2SAT 100
--- NOTE | 2016-12-13 12:40 | ED.REPORT ---
HPI-General Illness Date of Service Dec 13, 2016 ED Provider: Shaka Houston MD Patient is a 70 year old female with a hx of breast cancer and thyroid disease who presents to the ED complaining of a possible rxn to Tramadol. She took one Tramadol at 1100 and developed nausea, sweats, headache, lightheadedness, fatigue, nausea, and vomiting x1. She took one dose last night at 2200 but was unaffected. Medics were called out to the scene but she refused transport. She denies hitting her head, syncope, or any other symptoms. She had a fall yesterday onto her R side for which she was seen at . She did not have a rib fracture. She continues to complain of R rib and elbow pain. She took levothyroxine this morning as well. She is not on any current cancer treatments. Nursing Notes Stated Complaint: POSS REACTION TO TRAMADOL,NAUSEA DIZZY,SHAKY Chief Complaint: General Complaint Nursing Notes Reviewed: Yes Allergies: Coded Allergies: ciprofloxacin HCl (Verified Allergy, Severe, tendons hurting in knees and ankles, 08/08/16) oxycodone (Verified Allergy, Severe, Nausea,Vomiting, 08/08/16) tamsulosin HCl (Verified Allergy, Severe, racing heart, 08/08/16) timolol (Verified Allergy, Severe, Shortness of Breath, 08/08/16) brimonidine (Verified Adverse Reaction, Severe, Shortness of Breath, ) prednisone (Verified Adverse Reaction, Intermediate, Nausea,Vomiting, 02/12) tramadol (Verified Adverse Reaction, Mild, vomiting, 12/13/16) Uncoded Allergies: ORAL NARCOTICS (Allergy, Severe, VOMITING, 06/19/12) Scheduled Aspirin Chew (Aspirin Chew) 81 Mg Chew 81 MG PO DAILY Cholecalciferol (Vitamin D3) (Vitamin D3) 2,000 Unit Tablet 2,000 UNIT PO DAILY Levothyroxine (Levothyroxine) 25 Mcg Tablet 25 MCG PO QAM Ubidecarenone (Coenzyme Q-10) 200 Mg Capsule 200 MG PO DAILY General Time Seen by MD: 12:39 Chief Complaint Other (Possible medication reaction ) Hx Obtained From: Patient Arrived By: Walk-in Sudden in Onset?: Yes Onset Occurred: 1 - 4 hours ago Symptom Duration: Since onset Recent Healthcare: Recent doctor visit Past Medical History Past Medical History Kidney stones Spigelian hernia Breast cancer esophageal spasms R eye cataract Reports: Thyroid disease Past Surgical History Left eye removed Breast cancer s/p lumpectomy Hernia repair Reports: Appendectomy Smoking History Former Smoker Social History Alcohol Use: Denies alcohol use Drug Use: Denies drug use Other Social History: Good social support, , Local resident Ambulatory Status Independent Review of Systems - head trauma Full Review of Systems Constitutional: Reports: Fatigue GI: Reports: Nausea, Vomiting Skin: Reports Diaphoresis Neurologic: Reports: Headache, Lightheaded, Denies: Syncope Complete sys rev & neg: except as marked. Physical Exam Vital Signs Vital Signs Date Time Temp Pulse Resp B/P Pulse Ox O2 Delivery O2 Flow Rate FiO2 12/13/16 12:14 36.5 65 16 134/84 100 Initial VS: Reviewed, Vital signs normal Head / Eyes: Atraumatic, Normocephalic Neck: Full range of motion Respiratory: No respiratory distress Skin: Warm, Dry Neurologic: Alert, Oriented, Nonfocal Psychiatric: Mood/affect normal, Behavior normal, Normal thought content General/Constitutional: Awake, Alert, No acute distress Back: Atraumatic Upper Extremities Upper Extremity / MS: Full range of motion Mild abrasions over R forearm Interpretation & Diagnostics Lab Results Interpretation Lab Results Interpretation: 1249 sitting Pulse 70 BP 149/52 Standing 1251 Pulse 77 BP 149/68 Re-Eval/Medical Decision Med Decision/Clinical Course This patient appears entirely well and her symptomatology is entirely consistent with an adverse medication reaction. She is not orthostatic and has an otherwise benign exam. I believe that discharge and watchful waiting is appropriate without further workup. Time of Eval: 12:52 Re-Evaluation/Progress Note: Discussed plan for discharge. Patient understands and agrees with plan. All questions addressed at this time. Counseled Regarding: Diagnosis, Need for follow-up, When/why to return to ED Discharge & Departure Primary Impression: Adverse drug effect Encounter type: initial encounter Qualified Code: T88.7XXA - Unspecified adverse effect of drug or medicament, initial encounter Disposition: Home Discharge Condition All VS Reviewed: Yes Condition: Improved Additional Instructions: No dangerous medical condition is suspected. I believe that the symptoms you experienced are directly related to tramadol. I recommend that you do not take this medication in the future. I would not call this a drug allergy but rather an adverse medication reaction. Use Tylenol or ibuprofen as needed for pain. Follow up next week if your symptoms persist. Referrals: Hunter Tong DO (PCP) Abbyibcarlene Attestation Portions of this note were transcribed by Brie Nielsen. I, Dr. Houston personally performed the history, physical exam and medical decision-making; I reviewed and confirmed the accuracy of the information in the transcribed note. Signed by: Alycia Munroe, 12/13/16 at 1342. copies to: Hunter Tong Kirk H MD Dec 13, 2016 12:40 BRIE NIELSEN Dec 13, 2016 12:47
[2016-12-13 13:55] VITALS: BP 135/63; PULSE 68; RESP 19; O2SAT 98
[2016-12-13 13:56] VITALS: BP 135/63; PULSE 68; RESP 19; O2SAT 98
== END 2016-12-13 13:56 | disposition home or self-care (01) ==
LOC: SED 12:06
DX: R11.2 Nausea with vomiting, unspecified (principal); R42 Dizziness and giddiness; R51 Headache; R61 Generalized hyperhidrosis; R53.83 Other fatigue; T40.4X5A Adverse effect of other synthetic narcotics, initial encounter; Y93.89 Activity, other specified; Y92.89 Other specified places as the place of occurrence of the external cause; Y99.8 Other external cause status; M25.521 Pain in right elbow; R07.81 Pleurodynia; E07.9 Disorder of thyroid, unspecified; Z87.442 Personal history of urinary calculi; Z87.828 Personal history of other (healed) physical injury and trauma; Z79.82 Long term (current) use of aspirin; Z87.891 Personal history of nicotine dependence; Z88.1 Allergy status to other antibiotic agents; Z88.5 Allergy status to narcotic agent; Z88.8 Allergy status to other drugs, medicaments and biological substances

== ENCOUNTER 2016-12-19 21:27 | Emergency (ER) | payer MEDICARE ==
[~2016-12-19] VITALS: Ht 160 cm; Wt 63.6 kg
[2016-12-19 21:43] VITALS: BP 134/75; PULSE 73; RESP 18; O2SAT 97
[2016-12-19 22:57] LABS: APPEARANCE,URINE HAZY (CLEAR,HAZY); COLOR,URINE YELLOW (YELLOW); OCCULT BLOOD,URINE LARGE (NEGATIVE); PH,URINE 6.5 (5.0-8.0); UROBILINOGEN,URINE NORMAL (NORMAL)
[2016-12-19] MEDS ORDERED: cefTRIAXone Inj 2,000 MG in Dextrose 5% Minibag Plus 50 ML IV ONE (23:10)
[2016-12-20 00:05] LABS: BASOPHILS % (AUTO) 0.3 % (0-3); EOSINOPHILS % (AUTO) 0.7 % (0-5); MONOCYTES % (AUTO) 9.8 % (4-12); Mean Corpuscular Hemoglobin 33.7 pg (27.0-35.0); Mean Corpuscular Volume 95.9 fL (81-100); NEUTROPHILS % (AUTO) 76.5 % (40-74); Platelet Count 144 bil/L (150-400)
[2016-12-20] MEDS ORDERED: _HYDROcodone/APAP 5-325 mg Tablet PO PRN (01:10)
[2016-12-20] MEDS ORDERED: _Ondansetron ODT 4 mg Tablet PO PRN (01:10)
--- NOTE | 2016-12-20 01:21 | ED.REPORT ---
HPI-Trauma Minor / Fall Date of Service Dec 20, 2016 ED Provider: Jacob Forbes DO 70-year-old female with asked medical history of breast cancer (2005) comes into the emergency department today for back pain. Patient states that one week ago she was working in the garden when she suddenly lost her balance and fell backwards onto a boulder which absorbed the brunt of her fall. The boulder made contact with the spine on the right. Patient states that she did not hit her head at this time. She did not lose consciousness. Since that time the patient has had increased pain, difficulty ambulating, difficulty sleeping, and minor difficulty breathing. Pain is 8/10 and does not radiate. She has taken Tylenol but this has not repeated her pain. This morning she was seen by her PCP who did a urinalysis and found suggestion of UTI. Patient states that she was prescribed nitrofurantoin but did not want to take this medication after reading the list of possible side effects. She states that she has previously been prescribed Bactrim and has done well. She denies chest pain, shortness of breath, nausea/vomiting, fever, chills. Nursing Notes Stated Complaint: PAINFUL URINATION, BACK PAIN, RIGHT HIP PAIN Chief Complaint: Back Pain or Injury Nursing Notes Reviewed: Yes Allergies: Coded Allergies: ciprofloxacin HCl (Verified Allergy, Severe, tendons hurting in knees and ankles, 12/19/16) oxycodone (Verified Allergy, Severe, Nausea,Vomiting, 12/19/16) tamsulosin HCl (Verified Allergy, Severe, racing heart, 12/19/16) timolol (Verified Allergy, Severe, Shortness of Breath, 12/19/16) brimonidine (Verified Adverse Reaction, Severe, Shortness of Breath, ) prednisone (Verified Adverse Reaction, Intermediate, Nausea,Vomiting, 12/19) tramadol (Verified Adverse Reaction, Mild, vomiting, 12/19/16) Uncoded Allergies: ORAL NARCOTICS (Allergy, Severe, VOMITING, 06/19/12) Scheduled Aspirin Chew (Aspirin Chew) 81 Mg Chew 81 MG PO DAILY Cholecalciferol (Vitamin D3) (Vitamin D3) 2,000 Unit Tablet 2,000 UNIT PO DAILY Levothyroxine (Levothyroxine) 25 Mcg Tablet 25 MCG PO QAM Ubidecarenone (Coenzyme Q-10) 200 Mg Capsule 200 MG PO DAILY General Time Seen by MD: 22:31 Chief Complaint Fall Hx Obtained From: Patient, Spouse Onset Occurred: 1 week ago Symptom Duration: Since onset Caused by: Accidental Location: Back Severity: Current: Pain level 8 out of 10 Severity: Maximum: Pain level 8 out of 10 Recent Healthcare: Recent doctor visit Risk Factors IC Bleed Risk Stratification Risk factors reviewed Head CT Imaging RF Statements: Risk factors reviewed Spine Injury Risk Stratificati Risk factors reviewed Bleeding Risk Stratification Risk factors reviewed Past Medical History Past Medical History Kidney stones Spigelian hernia Breast cancer esophageal spasms R eye cataract Reports: Thyroid disease Past Surgical History Left eye removed Breast cancer s/p lumpectomy Hernia repair Reports: Appendectomy Smoking History Former Smoker Social History Alcohol Use: Denies alcohol use Drug Use: Denies drug use Other Social History: Good social support, , Local resident Ambulatory Status Independent Review of Systems Constitutional: Denies: Chills, Fever Respiratory: Reports: Pleuritic pain (minor), Denies: Shortness of breath, Wheezing Musculoskeletal: Reports: Back pain Neurologic: Reports: Headache, Denies: Bladder dysfunction, Bowel dysfunction, Change LOC, Confusion, Dizziness, Focal weakness, Lightheaded, Syncope, Weakness Complete sys rev & neg: except as marked. Physical Exam Physical Exam Notes: Moderate tenderness to palpation of the lower T-spine and upper L-spine Tenderness to palpation over the lower ribs. Mild CVA tenderness on the right Initial Vital Signs Vital Signs (First) Date Time Temp Pulse Resp B/P Pulse Ox O2 Delivery O2 Flow Rate FiO2 12/19/16 21:43 36.6 73 18 134/75 97 Room Air Initial VS: Reviewed, Vital signs normal Head / Eyes: Atraumatic, Normocephalic, PERRL ENT: Mucous membranes moist, Conjunctiva normal, No scleral icterus Respiratory: Breath sounds normal, Clear to auscultation, No respiratory distress Cardiovascular: Regular rate & rhythm, Heart sounds normal, Intact distal pulses Abdomen / GI: Soft, Non-tender, No guarding, No rebound, No distention Extremities: Vascular intact, Neuro intact, No swelling, No tenderness Skin: Warm, Dry, No cyanosis Neurologic: Alert, Oriented, Nonfocal Psychiatric: Mood/affect normal, Behavior normal, Normal thought content General/Constitutional: Awake, Alert, No acute distress, Well appearing, Well developed, Well hydrated Cardiovascular: Heart rate NL, Regular rhythm, Heart sounds NL, No gallop, No murmurs, No rubs Interpretation & Diagnostics Lab Results Interpretation Result Diagram: 12/19/16 2345 12/20/16 0101 Test 12/19/16 22:21 12/19/16 23:45 12/19/16 23:50 12/20/16 00:29 Urine Color Yellow (YELLOW) Urine Appearance Hazy (CLEAR,HAZY) Urine pH 6.5 (5.0-8.0) Urine Specific [place] 1.010 (1.003-1.035) Urine Protein 30mg/dL (NEG,TRACE) Urine Glucose (UA) Negativemg/dL (NEGATIVE) Urine Ketones Negativemg/dL (NEGATIVE) Urine Occult Blood Large (NEGATIVE) Urine Nitrite Negative (NEGATIVE) Urine Bilirubin Negative (NEGATIVE) Urine Urobilinogen Normalmg/dL (NORMAL) Urine Leukocyte Esterase Large (NEGATIVE) Urine RBC 3-10/hpf (0-2) Urine WBC >50/hpf (0-5) Urine Epithelial Cells Few/hpf (NONE-MOD) Urine Crystals None seen (NONE SEEN) Urine Bacteria Few/hpf (NONE-FEW) Urine Hyaline Casts None/lpf (NONE) Urine Granular Casts None seen (NONE SEEN) Urine Waxy Casts None seen (NONE SEEN) Urine Red Blood Cell Casts None seen (NONE SEEN) Urine White Blood Cell Casts None seen (NONE SEEN) Urine Mucus None seen (None Seen) Urine Trichomonas None seen (NONE SEEN) Urine Yeast None (NONE SEEN) Urinalysis Comment None Urine Culture Reflexed Indicated Hold Urine Received (Received) White Blood Count 10.2th/mm3 (3.8-10.1) Red Blood Count 4.36mil/mm3 (3.90-5.20) Hemoglobin 14.7g/dL (12.0-15.6) Hematocrit 41.8% (35.0-46.0) Mean Corpuscular Volume 95.9fL (81-100) Mean Corpuscular Hemoglobin 33.7pg (27.0-35.0) Mean Corpuscular Hemoglobin Concent 35.2% (32.0-37.0) Red Cell Distribution Width 11.7% (12.3-15.4) Platelet Count 144bil/L (150-400) Neutrophils (%) (Auto) 76.5% (40-74) Lymphocytes (%) (Auto) 12.5% (14-46) Monocytes (%) (Auto) 9.8% (4-12) Eosinophils (%) (Auto) 0.7% (0-5) Basophils (%) (Auto) 0.3% (0-3) Hold Brandt Top Tube Received (Received) Hold Blue Top Tube Received (Received) Test 12/20/16 01:01 Sodium Level 139mEq/L (134-144) Potassium Level 3.7mEq/L (3.5-5.2) Chloride Level 99mEq/L (97-108) Carbon Dioxide Level 25mmol/L (18-29) Blood Urea Nitrogen 18mg/dL (8-27) Creatinine 0.54mg/dL (0.57-1.00) Estimat Glomerular Filtration Rate 159mL/min (>59) Glucose Level 99mg/dL (60-99) Calcium Level 9.5mg/dL (8.5-10.1) Lab values outside NL range: no clinical significance. Urinalysis Interpretation Positive blood, Positive WBC's, Positive bacteria Re-Eval/Medical Decision Med Decision/Clinical Course The patient's history of nephrolithiasis a CT scan was ordered to rule out stones this modality was also used to evaluate for rib fracture. CT scan shows nondisplaced rib fracture of the 11th rib. It also shows nephrolithiasis bilaterally however no stones are found in the ureters. Urinalysis suggests pyelonephritis. With the results of the CT is difficult to say whether the red and white blood cells found in the patient's urinary results of the fracture, however, the patient should be covered with antibiotics in any case as pyelonephritis cannot be ruled out at this time. Counseled Regarding: Diagnosis, Lab results, Need for follow-up, When/why to return to ED Discharge & Departure Impression: Primary Impression: Rib fracture Encounter type: subsequent encounter Rib fracture type: single rib Fracture type: closed Laterality: right Fracture healing: with routine healing Qualified Code: S22.31XD - Fracture of one rib, right side, subsequent encounter for fracture with routine healing Additional Impression: Pyelonephritis Disposition: Home Discharge Condition All VS Reviewed: Yes Condition: Stable Additional Instructions: You came the emergency department today with concern for back pain and urinary tract infection. We did some basic blood work to rule out systemic infection and a CT scan to rule out any stones as well as any fractures that may have occurred in your fall last week. The CT scan indicates there is a nondisplaced fracture of the 11th rib. For treatment of this fracture we suggest opioid pain medications as this will allow for better breathing and better blood circulation in the area.. We have prescribed hydrocodone for your pain management over the next couple days please take 1 pill twice a day for pain. Discussed the fact that opioid pain medications typically cause you nausea, and for this reason I suggest that you take the Zofran 30 minutes before taking the hydrocodone and take the hydrocodone with food. Do not drive, drink alcohol, or take Tylenol while you are taking the hydrocodone. Also please make sure that he stand up slowly as this medication may cause dizziness. Splinting and/or wrapping of the fractured area is not indicated, and may slow healing of the area. A sample of your urine indicates that you likely have a UTI, urine given ceftriaxone IV here in the hospital today and we would like you to take Bactrim twice a day for the next 7 days. I would like you to follow-up with your primary care provider next 3-5 days if possible for management of pain as needed. Referrals: Hunter Tong DO (PCP) Attending Statement I personally took a history of performed an exam. Mrs. Sutton is tender over the right posterior thorax. She also has some urine frequency. Urinalysis shows signs of infection. White blood cell count is reassuring. There is some blood in her urine so scan was performed due to the fact that she fell recently. CT scan shows her kidneys to look well however she does have a right 11th rib fracture that is mildly displaced exactly where she is hurting. Does not appear to have punctured anything. No pneumothorax. She received IV ceftriaxone and we will place her on Bactrim. She has a true allergy to Cipro so this is not a choice. Regarding pain control. She is nauseous with opiates. She wants to try something however. She does not have a true allergy to hydrocodone. Wear long discussion about this. She will take Zofran 30 minutes before trying a half and Red[place]. If this does not make her too nauseous and she can increase it to a Redby full tab. I would like her to follow-up with a primary care physician this week or early next week. Urine culture is pending. She is discharged in stable condition. Routine opiate warnings given. copies to: Hunter Tong Adam J DO Dec 20, 2016 01:10 Jacob Forbes DO Dec 20, 2016 02:29
[2016-12-20 02:18] VITALS: BP 168/95; PULSE 77; RESP 16; O2SAT 98
[2016-12-20] MEDS ORDERED: SULF1TAB7 PO (02:56)
--- NOTE | 2016-12-20 08:28 | DRSVH ---
PROCEDURE: CT KUB ([id number]) INDICATIONS: poss stones, fall (R low T spine-Lspine) TECHNIQUE: Noncontrast 5 mm thick sections acquired from the diaphragms to the symphysis. 5 mm thick coronal an d sagittal reformats were then performed. For radiation dose reduction, the following was used: aut omated exposure control, adjustment of mA and/or kV according to patient size. COMPARISON: [facility], CT, KUB - CT ([facility]), 01/20/2010, 8:12. [facility], CR, XR KUB, 12/12/2016, 19:33. [facility], CR, XR KUB, 12/03/2016, 13:09. [facility], CR, KUB, 12/09/2012, 11:47. [facility], CT, ABD/PELVIS W/CON ([facility]), 5, 22:01. FINDINGS: Image quality: Excellent. Lung bases: Lung bases are clear of acute opacities. Calcified granulomas are noted in the right yolanda g base which are stable compared to prior examination. There is a minimally displaced posterior right 10th rib fracture.. Heart size is normal. Urinary system: Both kidneys are normal in size. There is a 7 mm in maximum diameter stone in the in ferior pole of the right kidney. There is a 2 mm in maximum diameter stone in the inferior pole of th e right kidney. There is a 4 mm in maximum diameter stone in the midpole of the right kidney. There i s a 5 mm in maximum diameter stone in the inferior pole of the left kidney. Prominent bilateral extra renal pelvises are stable compared to prior examination. No hydronephrosis or perinephric fat strandi ng. Both ureters appear non-dilated throughout their expected courses. Bladder wall thickness is no rmal; no calcified bladder stones. Other solid organs: Liver and spleen are normal in size. Gallbladder is within normal limits. Moder ate amount of stool noted throughout the colon. Pancreas is normal in contours. No adrenal nodules. Peritoneum and bowel: Small hiatal hernia is noted Unenhanced bowel loops demonstrate normal wall th ickness and caliber. Scattered diverticuli noted in the sigmoid colon without evidence of diverticuli tis. No free fluid or air. The appendix is not definitely visualized, however no secondary signs of a ppendicitis are identified adjacent to the cecum. Nodes and vessels: No retroperitoneal or mesenteric adenopathy by size criteria. Aorta and inferior vena cava are normal in caliber. Scattered atherosclerotic calcifications noted in the abdominal and pelvic vasculature. Abdominal wall: No ventral hernias. Pelvis: No free pelvic fluid. No inguinal hernias or adenopathy. Bones: No suspicious bony lesions. No vertebral body compression fractures. Spine degenerative disc disease and facet arthropathy. IMPRESSION: 1. Mildly displaced posterior right 11th rib fracture. 2. Bilateral nonobstructing renal stones. Dictated by: Amy Valles MD, PhD on 12/20/2016 at 8:17 Approved by: Amy Valles MD, PhD on 12/20/2016 at 8:26
== END 2016-12-20 02:20 | disposition home or self-care (01) ==
LOC: SED 21:27
DX: S22.31XA Fracture of one rib, right side, initial encounter for closed fracture (principal); W18.39XA Other fall on same level, initial encounter; Y93.89 Activity, other specified; Y92.007 Garden or yard of unspecified non-institutional (private) residence as the place of occurrence of the external cause; Y99.8 Other external cause status; N12 Tubulo-interstitial nephritis, not specified as acute or chronic; B96.20 Unspecified Escherichia coli [E. coli] as the cause of diseases classified elsewhere; R26.2 Difficulty in walking, not elsewhere classified; R06.00 Dyspnea, unspecified; E07.9 Disorder of thyroid, unspecified; Z87.442 Personal history of urinary calculi; Z98.890 Other specified postprocedural states; Z79.82 Long term (current) use of aspirin; Z87.891 Personal history of nicotine dependence; Z88.1 Allergy status to other antibiotic agents; Z88.5 Allergy status to narcotic agent; Z88.8 Allergy status to other drugs, medicaments and biological substances
CPT/HCPCS: 36415; 74176; 80048; 81000; 85025; 87040; 87086; 87088; 87186; 96365; 96372; 99285; J0696; J1885